=== PATIENT | female | born 1945 | race American Indian/Alaskan Native ===

== ENCOUNTER 2019-02-16 10:20 | Outpatient (CLI) | payer OTHER ==
--- NOTE | 2019-02-16 12:28 | Cat Scan Report ---
CT head without contrast HISTORY: MEMORY LOSS. TECHNIQUE: Axial imaging performed from the skull apex through the skull base without the use of con trast. All CT scans at this location are performed using CT dose reduction for ALARA by means of aut omated exposure control. COMPARISON: CT head from 07/20/2012 FINDINGS: Parenchyma: No acute intracranial hemorrhage or parenchymal abnormality. 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 Ventricles: There is mild diffuse brain atrophy with commensurate ventricular enlargement which is l ikely age appropriate. Soft tissues: Soft tissues including the orbits appear normal. Bones: No acute osseous abnormality. Sinuses: There is a tiny right-sided maxillary mucus retention cyst. Otherwise sinuses and mastoid a ir cells are clear. IMPRESSION: No acute abnormality. Signer Name: González Baker MD Signed: 02/16/2019 12:24 PM Workstation Name: [id number]
== END 2019-02-16 10:21 | disposition home or self-care (01) ==
LOC: CT 10:20
PROVIDERS: ATTEND Internal Medicine Nephrology
DX: Z01.89 Encounter for other specified special examinations (principal); G31.89 Other specified degenerative diseases of nervous system
CPT/HCPCS: 70450

== ENCOUNTER 2019-04-03 05:56 | Day surgery (SDC) | payer MEDICARE, OTHER ==
[~2019-04-03 05:56] MED LIST: ceFAZolin/Water 2 GM/20 ML 2 GM/20 ML SYRINGE IV NR
[2019-04-03] MEDS ORDERED: BACTERIOSTATIC SODIUM CHLORIDE 0.9% 30 ML VIAL INFILTRATI ONE (06:45)
--- NOTE | 2019-04-03 07:18 | Anesthesia Consultation ---
Anesthesia Consult and Med Hx Date of service: 04/03/19 - Airway Anesthetic Teeth Evaluation: Good ROM Head & Neck: Adequate Mental/Hyoid Distance: Adequate Mallampati Class: Class II Intubation Access Assessment: Good - Pulmonary Exam CTA: Yes - Cardiac Exam Cardiac Exam: RRR - Pre-Operative Health Status ASA Pre-Surgery Classification: ASA3 Proposed Anesthetic Plan: General - Pulmonary Hx Smoking: No Hx Asthma: No Hx Respiratory Symptoms: No SOB: No Hx Pneumonia: No Hx Sleep Apnea: Yes (DX SLEEP APNEA WITH CPAP USE) - Cardiovascular System Hx Hypertension: Yes (1989) Hx Coronary Artery Disease: No (Neg stress thallium 2007, neg stress test 05/2014) Hx Cardia Arrhythmia: Yes (RBBB) Hx Heart Murmur: No - Central Nervous System Hx Neuromuscular Disorder: No Hx Seizures: No CVA: No Hx Back Pain: No Hx Psychiatric Problems: Yes (Depression) - Gastrointestinal Hx Ulcer: No Hx Gastroesophageal Reflux Disease: No - Endocrine Hx Renal Disease: No Hx Insulin Dependent Diabetes: No Hx Non-Insulin Dependent Diabetes: No (h/o pre-diabetes; off metformin x 10 months) Hx Thyroid Disease: No - Hematic Hx Anemia: Yes (NOT RECENT) Hx Sickle Cell Disease: No - Other Systems Hx Alcohol Use: No Hx Substance Use: No Hx Cancer: No Hx Obesity: No
[2019-04-03] MEDS ORDERED: HYDROmorphone 1 MG/1 ML INJ IV PRN (07:19)
[2019-04-03] MEDS ORDERED: ONDANSETRON 4 MG/2 ML INJ IV PRN (07:19)
[2019-04-03] MEDS ORDERED: LIDOCAINE (2%) 20 MG/1 ML VIAL 20 ML MDV INFILTRATI ONE ×2 (07:20→08:24)
--- NOTE | 2019-04-03 07:20 | Anesthesia Day of Surgery ---
Anesthesia Day of Surgery - Day of Surgery Patient Examined: Yes Patient H&P Reviewed: Yes Patient is NPO: Yes
[2019-04-03 07:25] LABS: Basophils % (Auto) 0.7 % (0.0-1.8); Eosinophils % (Auto) 1.2 % (0.0-4.3); Hematocrit 37.8 % (30.3-42.9); Hemoglobin 12.7 gm/dl (10.1-14.3); Lymphocytes # (Auto) 1.4 K/mm3 (1.2-5.4); Mean Corpuscular HGB Conc 34 % (30-34); Mean Corpuscular Volume 93 fl (79-97); Monocytes # (Auto) 0.3 K/mm3 (0.0-0.8); Monocytes % (Auto) 10.8 % (0.0-7.3); Platelet Count 188 K/mm3 (140-440); Red Blood Count 4.08 M/mm3 (3.65-5.03); Red Cell Distribution Width 14.1 % (13.2-15.2)
[2019-04-03] MEDS ORDERED: SUCCINYLCHOLINE CHLORIDE 200 MG/10 ML INJ MDV ONE (07:26)
[2019-04-03] MEDS ORDERED: fentaNYL 100 MCG/2 ML INJ ONE (07:26)
[2019-04-03] MEDS ORDERED: LIDOCAINE MPF (2%) 20 MG/1 ML VIAL 5 ML ONE (07:26)
[2019-04-03] MEDS ORDERED: PROPOFOL 200 MG/20 ML VIAL IV ONE ×2 (07:27→07:53)
[2019-04-03 07:46] LABS: BUN/Creatinine Ratio 29; Blood Urea Nitrogen 23 mg/dL (7-17); Calcium 9.1 mg/dL (8.4-10.2); Hemolysis Index 28
[2019-04-03] MEDS ORDERED: MIDAZOLAM 2 MG/2 ML INJ IV NR (08:00)
[2019-04-03] MEDS ORDERED: LACTATED RINGERS 1,000 ML IV SCH (08:00)
[2019-04-03] MEDS ORDERED: WATER FOR IRRIG STERILE 1,500 ML BOTTLE IR ONE (08:25)
[2019-04-03] MEDS ORDERED: dexAMETHasone 20 MG/5 ML VIAL ONE (08:30)
[2019-04-03] MEDS ORDERED: ONDANSETRON 4 MG/2 ML INJ ONE ×2 (08:30)
--- NOTE | 2019-04-03 08:52 | Short Stay Summary ---
Short Stay Documentation Date of service: 04/03/19 - History Past Medical History: No medical history - Allergies and Medications Current Medications: Allergies Sulfa (Sulfonamide Antibiotics) Allergy (Intermediate, Verified 11/19/14 09:21) Rash lisinopril Adverse Reaction (Intermediate, Verified 11/19/14 09:22) Rash monosodium glutamate Adverse Reaction (Verified 05/31/13 21:15) Vomiting Home Medications Medication Instructions Recorded Confirmed Last Taken Type Cetirizine HCl [ZyrTEC 10mg cap] 10 mg PO DAILY PRN 06/01/13 04/03/19 04/02/19 09:00 History Multivitamin [Multi-Vitamin Daily] 1 tab PO DAILY 06/01/13 04/03/19 04/02/19 09:00 History Docusate Sodium [Colace CAP] 100 mg PO BID PRN 11/18/14 04/03/19 04/02/19 09:00 History Losartan [Cozaar] 50 mg PO QDAY 11/18/14 04/03/19 04/03/19 04:00 History Omeprazole [PriLOSEC] 40 mg PO QDAY 11/18/14 04/03/19 04/02/19 09:00 History FLUoxetine HCL [Fluoxetine HCl] 60 mg PO DAILY 03/20/19 04/03/19 04/03/19 04:00 History Propranolol LA [Inderal LA] 60 mg PO QDAY 03/20/19 04/03/19 04/03/19 04:00 History cloNIDine-TTS PATCH [Catapres-Tts 0.2 mg TD QWEEK 03/20/19 04/03/19 04/02/19 09:00 History 0.3mg Patch] traZODone [Desyrel] 25 mg PO QHS 03/20/19 04/03/19 04/02/19 20:00 History Active Medications Hydromorphone HCl (Dilaudid) 0.25 mg IV Q10MIN PRN PRN Reason: Pain, Moderate (4-6) Stop: 04/03/19 23:00 Cefazolin Sodium (Ancef/Sterile Water 2 Gm/20 Ml) 2 gm in 20 mls @ 80 mls/hr IV PREOP NR; Protocol Stop: 04/03/19 23:00 Lactated Ringer's (Lactated Ringers) 1,000 mls @ 100 mls/hr IV DIRECT BUNNY Midazolam HCl (Versed) 2 mg IV PREOP NR Stop: 04/03/19 23:59 Ondansetron HCl (Zofran) 4 mg IV ONCE PRN PRN Reason: Nausea And Vomiting Stop: 04/03/19 16:00 - Brief post op/procedure progress note Date of procedure: 04/03/19 Pre-op diagnosis: interstim mal fux Post-op diagnosis: same Procedure: replace generator (battery) Anesthesia: GETA Surgeon: ORTEGA CARRENO Condition: stable - Hospital course Hospital course: cipro & norco on chart - Disposition Condition at discharge: Stable Disposition: DC-01 TO HOME OR SELFCARE Short Stay Discharge Plan Follow up with: MAGGY JULIO MD [Primary Care Provider] - 7 Days
[2019-04-03 09:46] VITALS: BP 143/86
--- NOTE | 2019-04-03 15:25 | XRay Report ---
INTRAOPERATIVE FLUOROSCOPY: INDICATION / CLINICAL INFORMATION: MALFUNCTIONING INTERSTIM. TECHNIQUE: Intraoperative spot images were obtained during the procedure. FINDINGS: Intraoperative spot images show placement of an InterStim lead on the left. Fluoroscopy Time: 2 seconds. Fluoroscopy Images: 2. Signer Name: Tobin Qiu MD Signed: 04/03/2019 3:20 PM Workstation Name: [id number]
--- NOTE | 2019-04-03 15:26 | Post Anesthesia Evaluation ---
- Post Anesthesia Evaluation Patient Participated: Yes Airway Patent: Yes Stable Respiratory Function: Yes Nausea/Vomiting: No Temp > 96.8F: Yes Pain Manageable: Yes Adequeate Hydration: Yes Anesthesia Complications: No Block Receding Appropriately: Not Applicable Patient on Ventilator: No
--- NOTE | 2019-04-05 11:11 | Operative Report ---
PREOPERATIVE DIAGNOSIS: Malfunctioning InterStim. POSTOPERATIVE DIAGNOSES: Malfunctioning InterStim. PROCEDURE: Replace implantable pulse generator (IPG). SURGEON: Edd Arrieta MD ANESTHESIA: General. ESTIMATED BLOOD LOSS: Minimal. FLUIDS: Crystalloid. COMPLICATIONS: No complications. INDICATIONS: This elderly female has been under my care for several years for nonobstructive urinary incontinence. She was initially seen in 2014. Urodynamic testing was consistent with urge incontinence. She underwent permanent InterStim at that time. She had done well for several years, presented to the office recently with worsening symptoms. Evaluation of her battery in the office was nonfunctional. She presents now for replacement of IPG. DESCRIPTION OF PROCEDURE: The patient was taken to the operative suite, placed in a supine position. After adequate general anesthesia, she was then placed in a prone position. Lower back prepped and draped in a sterile fashion. C-arm fluoroscopy confirmed pulse generator and quadripolar lead to be in good position. Incision with the Bovie was made over the generator in the left buttock area. Sharp dissection was taken down to the battery. It was exposed. No signs of infection. The battery was removed without difficulty. On the table test stimulation of all four leads revealed adequate stimulation in leads 0 1 and 2. No stimulation in lead 3. A new battery was then placed without difficulty. Interrogation on the table revealed an adequate response. Copious irrigation was performed. Adequate hemostasis achieved. The battery was then placed in subcutaneous pouch, 2-0 Vicryl was used to close subcutaneous tissue, 3-0 Vicryl was used to close the skin. Dressing was placed. The patient tolerated the procedure well. She was extubated and taken to recovery room in stable condition. JOB# [id number] [facility]
== END 2019-04-03 05:57 | disposition home or self-care (01) ==
LOC: OR 05:56
PROVIDERS: ATTEND Urology
DX: T83.190A Other mechanical complication of urinary electronic stimulator device, initial encounter (principal); I10 Essential (primary) hypertension; M19.90 Unspecified osteoarthritis, unspecified site; G47.30 Sleep apnea, unspecified; G56.00 Carpal tunnel syndrome, unspecified upper limb; I42.9 Cardiomyopathy, unspecified; K21.9 Gastro-esophageal reflux disease without esophagitis; F32.9 Major depressive disorder, single episode, unspecified; Z98.890 Other specified postprocedural states; Z90.710 Acquired absence of both cervix and uterus; Z87.440 Personal history of urinary (tract) infections; Z88.2 Allergy status to sulfonamides; Z79.899 Other long term (current) drug therapy; Z88.8 Allergy status to other drugs, medicaments and biological substances; Y83.8 Other surgical procedures as the cause of abnormal reaction of the patient, or of later complication, without mention of misadventure at the time of the procedure; Y82.8 Other medical devices associated with adverse incidents
CPT/HCPCS: 36415; 64590; 73501; 80048; 82962; 85025; 88302; C1767; C1787; C1894; J0330; J0690; J1100; J2405; J2704; J3010; J7120

== ENCOUNTER 2019-11-26 10:13 | Outpatient (CLI) | payer OTHER ==
--- NOTE | 2019-11-26 12:48 | Magnetic Resonance Report ---
MRI BRAIN WITHOUT CONTRAST INDICATION / CLINICAL INFORMATION: G31.84Mild cognitive impairment, so stated. TECHNIQUE: Multiplanar, multisequence MR images of the brain were obtained. COMPARISON: None available. FINDINGS: BRAIN / INTRACRANIAL CONTENTS: No acute ischemia, acute hemorrhage, mass effect, midline shift, or hy drocephalus. No chronic infarct. (see below for quantitative analysis of white matter) QUALITATIVE ANALYSIS OF FOCAL AND/OR GENERALIZED BRAIN VOLUME/ATROPHY: Normal brain parenchymal volum e for age. No significant focal or generalized atrophy. QUANTITATIVE ANALYSIS: * DEEP CEREBRAL WHITE MATTER: Grade 2 Fazekas Scale* deep cerebral white matter hyperintensities. * RIGHT HIPPOCAMPAL ATROPHY (based upon visual grading system of Chemo et al): Grade 1 * LEFT HIPPOCAMPAL ATROPHY (based upon visual grading system of Chemo et al): Grade 1 CRANIOCERVICAL JUNCTION: No significant abnormality. VASCULAR FLOW-VOIDS: No significant abnormality. ORBITS: Previous bilateral lens replacement. SINUSES / MASTOIDS: No significant abnormality of visualized sinuses and mastoid air cells. ADDITIONAL FINDINGS: None. IMPRESSION: 1. No significant focal or generalized brain atrophy beyond what would be expected in a patient of th is age. 2. Moderate chronic small vessel ischemic change in the cerebral white matter. *: Prince F, Vale KYA, Nadine A et-al. MR signal abnormalities at 1.5 T in Alzheimer's dementia and normal aging. AJR Am J Roentgenol. 1987;149 (2): 351-6. : Chemo Lawson, Curtis DA, Nicole E et-al. Medial temporal lobe atrophy on MRI scans and the diagno sis of Alzheimer disease. Neurology. 2008;71 (24): 1986-92. Signer Name: Tomás House MD Signed: 11/26/2019 12:43 PM Workstation Name: [id number]
== END 2019-11-26 10:14 | disposition home or self-care (01) ==
LOC: MRI 10:13
DX: G31.84 Mild cognitive impairment of uncertain or unknown etiology (principal)
CPT/HCPCS: 70551

== ENCOUNTER 2021-02-22 02:35 | Emergency (ER) | payer MEDICARE, OTHER ==
[2021-02-22] MEDS ORDERED: HYDROcodone/ACETAMINOPHEN 5-325 MG TAB PO ONE (05:10)
--- NOTE | 2021-02-22 06:00 | XRay Report ---
Right ankle, 3 views HISTORY: Ankle pain COMPARISON: None FINDINGS: There is an acute oblique fracture involving the distal fibula at the syndesmosis. Syndesmo sis and ankle mortise are intact. No additional fracture. Lateral ankle soft tissue swelling. IMPRESSION: Acute oblique fracture of the right distal fibula. Left ankle, 3 views HISTORY: Ankle pain COMPARISON: None FINDINGS: Small ossific fragment is present at the dorsal aspect of the navicular, suspect acute frac ture. No additional fracture. Ankle mortise is symmetric. Mild soft tissue swelling about the ankle, greatest laterally. IMPRESSION: Suspected acute fracture of the dorsal aspect of the left navicular. No additional acute osseous abnormality. Signer Name: Philip Bourgeois MD Signed: 02/22/2021 5:55 AM Workstation Name: [id number]
[2021-02-22] MEDS ORDERED: ONDANSETRON 4 MG ODT TAB PO ONE (06:26)
[2021-02-22] MEDS ORDERED: IBUPROFEN 200 MG TAB PO ONE (06:26)
--- NOTE | 2021-02-22 06:27 | Emergency Department Report ---
ED Lower Extremity HPI - General Chief Complaint: Extremity Injury, Lower Stated Complaint: FALL ANKLE INJURY Time Seen by Provider: 02/22/21 06:01 Source: patient, RN notes reviewed Mode of arrival: Stretcher Limitations: Physical Limitation - History of Present Illness Initial Comments: During the history and physical examination, I am chaperoned by life skills trainer Thalia Liu Primary CARE physician: [facility] Past medical history: Hypertension, arthritis. The patient is a pleasant 76-year-old female. She presents to the ER today with a complaint of right lateral ankle pain, and left dorsal foot pain, after mechanical fall approximately 12 hours ago. Patient was walking downstairs, slipped, twisted her right ankle, left foot, and landed on her butt. She did not hit her head or neck. She has no new headache, denies neck pain, chest pain, abdominal pain, shortness of breath, nausea, vomiting and diarrhea, weakness and numbness. She denies bladder, bowel retention incontinence or saddle anesthesia. She is accompanied by her daughter. The patient reports that she has 2 sets of stairs at home. The patient lives at home by herself. MD Complaint: ankle injury, foot injury, other (Right ankle pain. Left foot injury) -: Sudden, hour(s) (12 hours ago) Injury: Ankle: Right, Foot: Left Type of Injury: blunt Place: home Severity: moderate Improves With: rest Worsens With: movement, palpation Context: fall, direct blow Associated Symptoms: swelling, unable to bear weight - Related Data Home Medications Medication Instructions Recorded Confirmed Last Taken Cetirizine HCl [ZyrTEC 10mg cap] 10 mg PO DAILY PRN 06/01/13 04/03/19 04/02/19 09:00 Multivitamin [Multi-Vitamin Daily] 1 tab PO DAILY 06/01/13 04/03/19 04/02/19 09:00 Docusate Sodium [Colace CAP] 100 mg PO BID PRN 11/18/14 04/03/19 04/02/19 09:00 Losartan [Cozaar] 50 mg PO QDAY 11/18/14 04/03/19 04/03/19 04:00 Omeprazole [PriLOSEC] 40 mg PO QDAY 11/18/14 04/03/19 04/02/19 09:00 FLUoxetine HCL [Fluoxetine HCl] 60 mg PO DAILY 03/20/19 04/03/19 04/03/19 04:00 Propranolol LA [Inderal LA] 60 mg PO QDAY 03/20/19 04/03/19 04/03/19 04:00 cloNIDine-TTS PATCH [Catapres-Tts 0.2 mg TD QWEEK 03/20/19 04/03/19 04/02/19 09:00 0.3mg Patch] traZODone [Desyrel] 25 mg PO QHS 03/20/19 04/03/19 04/02/19 20:00 Previous Rx's Medication Instructions Recorded Last Taken Type Acetaminophen [Non-Aspirin Extra 650 mg PO Q6HR PRN #30 tablet 02/22/21 Unknown Rx Strength] Ibuprofen [Motrin] 400 mg PO Q8H PRN #30 tablet 02/22/21 Unknown Rx Allergies Allergy/AdvReac Type Severity Reaction Status Date / Time Sulfa (Sulfonamide Allergy Intermediate Rash Verified 11/19/14 09:21 Antibiotics) lisinopril AdvReac Intermediate Rash Verified 11/19/14 09:22 monosodium glutamate AdvReac Vomiting Verified 05/31/13 21:15 ED Review of Systems ROS: Stated complaint: FALL ANKLE INJURY Other details as noted in HPI Constitutional: denies: fever Eyes: denies: eye discharge ENT: denies: epistaxis Respiratory: denies: cough Cardiovascular: denies: chest pain Musculoskeletal: joint swelling, arthralgia. denies: myalgia Neurological: denies: weakness, numbness ED Past Medical Hx - Past Medical History Previous Medical History?: Yes Hx Hypertension: Yes (1989) Hx Diabetes: Yes ("PRE"- NO MEDS) Hx GERD: Yes Hx Renal Disease: No Hx Sickle Cell Disease: No Hx Arthritis: Yes (KNEES) Hx Seizures: No Hx Asthma: No Hx HIV: No Additional medical history: sleep apnea - Surgical History Past Surgical History?: Yes Additional Surgical History: rotator cuff and knee surg. - Social History Smoking Status: Never Smoker - Medications Home Medications: Home Medications Medication Instructions Recorded Confirmed Last Taken Type Cetirizine HCl [ZyrTEC 10mg cap] 10 mg PO DAILY PRN 06/01/13 04/03/19 04/02/19 09:00 History Multivitamin [Multi-Vitamin Daily] 1 tab PO DAILY 06/01/13 04/03/19 04/02/19 09:00 History Docusate Sodium [Colace CAP] 100 mg PO BID PRN 11/18/14 04/03/19 04/02/19 09:00 History Losartan [Cozaar] 50 mg PO QDAY 11/18/14 04/03/19 04/03/19 04:00 History Omeprazole [PriLOSEC] 40 mg PO QDAY 11/18/14 04/03/19 04/02/19 09:00 History FLUoxetine HCL [Fluoxetine HCl] 60 mg PO DAILY 03/20/19 04/03/19 04/03/19 04:00 History Propranolol LA [Inderal LA] 60 mg PO QDAY 03/20/19 04/03/19 04/03/19 04:00 History cloNIDine-TTS PATCH [Catapres-Tts 0.2 mg TD QWEEK 03/20/19 04/03/19 04/02/19 09:00 History 0.3mg Patch] traZODone [Desyrel] 25 mg PO QHS 03/20/19 04/03/19 04/02/19 20:00 History Acetaminophen [Non-Aspirin Extra 650 mg PO Q6HR PRN #30 tablet 02/22/21 Unknown Rx Strength] Ibuprofen [Motrin] 400 mg PO Q8H PRN #30 tablet 02/22/21 Unknown Rx ED Physical Exam - General Limitations: Physical Limitation General appearance: alert, in no apparent distress, obese - Head Head exam: Present: atraumatic, normocephalic - Eye Eye exam: Present: normal appearance, EOMI. Absent: nystagmus - ENT ENT exam: Present: normal exam, normal orophraynx, mucous membranes moist, normal external ear exam - Neck Neck exam: Present: normal inspection, full ROM. Absent: tenderness, meningismus - Respiratory Respiratory exam: Present: normal lung sounds bilaterally. Absent: respiratory distress, wheezes, rales, rhonchi, stridor, decreased breath sounds - Cardiovascular Cardiovascular Exam: Present: regular rate, normal rhythm, normal heart sounds. Absent: bradycardia, tachycardia, irregular rhythm, systolic murmur, diastolic murmur, rubs, gallop - GI/Abdominal GI/Abdominal exam: Present: soft. Absent: distended, tenderness, guarding, rebound, rigid, pulsatile mass - Extremities Exam Extremities exam: Present: normal inspection, full ROM, tenderness (There is right lateral ankle tenderness. There is no right medial ankle tenderness. The right knee is nontender. The right hip, femur, thigh pelvis nontender), joint swelling (The right lateral ankle swollen.), other (Left dorsal foot is tender. Left ankle nontender. Left knee nontender. Left pelvis nontender. Coccyx nontender.). Absent: calf tenderness - Back Exam Back exam: Present: normal inspection, full ROM. Absent: tenderness, CVA tenderness (R), CVA tenderness (L), paraspinal tenderness, vertebral tenderness - Neurological Exam Neurological exam: Present: alert, oriented X3, other (No facial droop. Tongue midline. Extraocular movements intact bilaterally. Facial sensation intact to light touch in V1, V2, V3 distribution bilaterally. 5 and a 5 strength in 4 extremities. Sensation intact to light touch in 4 extremities.). Absent: motor sensory deficit - Psychiatric Psychiatric exam: Present: normal affect, normal mood - Skin Skin exam: Present: warm, dry, intact, normal color. Absent: rash - Other Other exam information: 2+ pulses noted in the bilateral upper and lower extremities. The upper extremities have no longer any tenderness. The pelvis is stable. The coccyx is nontender. Femur nontender. Bilateral knees nontender. ED Course Vital Signs 02/22/21 02/22/21 02/22/21 06:09 06:37 06:42 Temperature 98.2 F Pulse Rate 84 Respiratory 20 20 20 Rate Blood Pressure 180/93 [Left] O2 Sat by Pulse 99 Oximetry 02/22/21 08:40 Temperature Pulse Rate 81 Respiratory 16 Rate Blood Pressure 173/84 [Left] O2 Sat by Pulse 98 Oximetry - Reevaluation(s) Reevaluation #1: 02/22/21 07:38 Differential diagnosis, including not limited to: Fall, fracture, sprain, strain, dislocation Assessment and plan: 76-year-old female, who was afebrile, with reassuring vital signs with the exception of chronic elevated blood pressure which is not acutely decompensated (please reference the [employer] emergency visits clinical policy on asymptomatic hypertension), with mechanical fall, with right distal fibular fracture, and left navicular avulsion fracture. Pelvis nontender. Coccyx nontender. Knees nontender. She has a GCS of 15. Because of these injuries, she will need to be nonweightbearing. Splint ordered for bilateral lower extremities. Pain medication ordered. As the patient will require a wheelchair, and lives at home by herself, and has 2 steps of stairs, have requested physical therapy evaluation, as well as case management evaluation. I discussed this with the patient, and with her daughter who are currently at the bedside. We treated her pain aggressively. She can follow-up with her outpatient primary care doctor for chronic hypertension. She will need to follow-up with an outpatient orthopedist or lot boss for her orthopedic injuries. However, these injuries do not require admission to the hospital for emergent surgical fixation. Bilateral knees nontender, Maisonneuve fracture very unlikely. Hip and pelvis nontender. Coccyx nontender. Patient did not hit her head or neck. She also tells me she does not take blood thinning medication Reassess after evaluation from case management, and physical therapy 02/22/21 10:07 Patient reassessed multiple times. She appears comfortable. Splint is examined by myself. It is adequate. She is neurovascular intact distally. Daughter has indicated to case management that she will take off of work if necessary. Home PT evaluation has been ordered by case management. In addition, case management informs me that a wheelchair should be delivered to the patient's house this afternoon. I discussed this with the patient and her daughter. They articulated understanding. Patient suitable for discharge at this point time. All questions answered. Return precautions are reviewed ED Lower Extremity MDM - Lab Data Vital Signs 02/22/21 02/22/21 02/22/21 06:09 06:37 06:42 Temperature 98.2 F Pulse Rate 84 Respiratory 20 20 20 Rate Blood Pressure 180/93 [Left] O2 Sat by Pulse 99 Oximetry - Radiology Data Radiology results: report reviewed, image reviewed Right ankle, 3 views HISTORY: Ankle pain COMPARISON: None FINDINGS: There is an acute oblique fracture involving the distal fibula at the syndesmosis. Syndesmosis and ankle mortise are intact. No additional fracture. Lateral ankle soft tissue swelling. IMPRESSION: Acute oblique fracture of the right distal fibula. Left ankle, 3 views HISTORY: Ankle pain COMPARISON: None FINDINGS: Small ossific fragment is present at the dorsal aspect of the navicular, suspect acute fracture. No additional fracture. Ankle mortise is symmetric. Mild soft tissue swelling about the ankle, greatest laterally. IMPRESSION: Suspected acute fracture of the dorsal aspect of the left navicular. No additional acute osseous abnormality. Signer Name: Philip Bourgeois MD Signed: 02/22/2021 4:55 AM Workstation Name: [id number] Critical care attestation.: If time is entered above; I have spent that time in minutes in the direct care of this critically ill patient, excluding procedure time. ED Disposition Clinical Impression: Elevated blood pressure reading Closed fracture of right distal fibula Qualifiers: Encounter type: initial encounter Fracture morphology: unspecified fracture morphology Qualified Code(s): S82.831A - Other fracture of upper and lower end of right fibula, initial encounter for closed fracture Left navicular fracture of foot Qualifiers: Encounter type: initial encounter Fracture type: closed Fracture alignment: nondisplaced Qualified Code(s): S92.255A - Nondisplaced fracture of navicular [scaphoid] of left foot, initial encounter for closed fracture Fall Qualifiers: Encounter type: initial encounter Qualified Code(s): W19.XXXA - Unspecified fall, initial encounter Disposition: 01 HOME / SELF CARE / HOMELESS Is pt being admited?: No Does the pt Need Aspirin: No Condition: Good Instructions: Nondisplaced Fibular Ankle Fracture Treated With Immobilization, Adult, Tarsal Fracture, Cast or Splint Care, Adult Additional Instructions: Pain typically gets worse before gets better after a fall. Remain non weightbearing in the bilateral lower extremities, use the wheelchair. Take the pain medication as prescribed. Continue current outpatient blood pressure medication. Recommend follow-up with an outpatient orthopedist or lot boss for left navicular fracture, and right distal fibular fracture, within the next 3 to 5 days. [facility] is a local orthopedic group. Dr. Fam is a local lot boss. Dr. Rodriguez is a local orthopedist. Alternate ice packs and heat packs as needed for physical pain. Please return to the emergency room right away with new pain, worsened pain, migration of pain, weakness, numbness, projectile vomiting, change in mental status, confusion, inability to tolerate liquid feeds, new, worsened or different symptoms not present on the initial emergency room evaluation Prescriptions: Ibuprofen [Motrin] 400 mg PO Q8H PRN #30 tablet PRN Reason: Pain Acetaminophen [Non-Aspirin Extra Strength] 650 mg PO Q6HR PRN #30 tablet PRN Reason: Pain , Severe (7-10) Referrals: [facility] [Provider Group] - 3-5 Days PATRICK FAM DPM [Staff Physician] - 3-5 Days DULCE RODRIGUEZ MD [Staff Physician] - 3-5 Days
[2021-02-22] MEDS ORDERED: IBUPROFEN ORAL LIQD 100 MG/5 ML ORAL.LIQD PO ONE (06:37)
[2021-02-22 10:50] VITALS: BP 160/78
== END 2021-02-22 10:51 | disposition home or self-care (01) ==
LOC: ED 02:35
DX: S82.831A Other fracture of upper and lower end of right fibula, initial encounter for closed fracture (principal); S92.255A Nondisplaced fracture of navicular [scaphoid] of left foot, initial encounter for closed fracture; I10 Essential (primary) hypertension; E11.9 Type 2 diabetes mellitus without complications; K21.9 Gastro-esophageal reflux disease without esophagitis; M19.90 Unspecified osteoarthritis, unspecified site; Z79.899 Other long term (current) drug therapy; Z88.2 Allergy status to sulfonamides; Z88.8 Allergy status to other drugs, medicaments and biological substances; W18.39XA Other fall on same level, initial encounter; Y93.89 Activity, other specified; Y92.89 Other specified places as the place of occurrence of the external cause; Y99.8 Other external cause status
CPT/HCPCS: 99283; J3490; Q0162

== ENCOUNTER 2021-03-13 20:06 | Emergency (ER) | payer MEDICARE, OTHER ==
[2021-03-13] MEDS ORDERED: ASPIRIN 81 MG TAB CHEW PO ONE (20:25)
--- NOTE | 2021-03-13 20:30 | Emergency Department Report ---
ED Chest Pain HPI - General Chief Complaint: High BP Stated Complaint: LEFT ARM PAIN/ HYPERTENSION Time Seen by Provider: 03/13/21 20:17 Source: EMS Mode of arrival: Stretcher Limitations: No Limitations - History of Present Illness Initial Comments: Chief complaint: Arm pain elevated blood pressure HPI: 76-year-old female with history of hypertension, osteoarthritis, sleep apnea, carpal tunnel syndrome, bilateral ankle fractures who presents with left arm pain rating to the chest for several days. Patient has had left upper extremity pain rating to her chest with shortness of breath. Intermittent. She has been mostly immobile since being diagnosed with bilateral ankle fractures February 22. No previous history of cardiac disease. She has history of heart murmur. She has clonidine patch in place. No changes in her medication. She is unclear why her blood pressure has been extremely high. She is retired . She served in the [employer]. She lives alone. Her daughter lives nearby only 1 mile away. MD Complaint: chest pain, other (Left arm pain radiating to the chest and shoulder) -: Gradual Onset: during rest Pain Location: left chest Pain Radiation: LUE Severity: moderate Severity scale (0 -10): 5 Quality: aching, dull Consistency: intermittent Improves With: other (Deep breathing) Worsens With: nothing Context: recent immobilization Treatments Prior to Arrival: other (EMS transport) - Related Data Home Medications Medication Instructions Recorded Confirmed Last Taken Cetirizine HCl [ZyrTEC 10mg cap] 10 mg PO DAILY PRN 06/01/13 04/03/19 04/02/19 09:00 Multivitamin [Multi-Vitamin Daily] 1 tab PO DAILY 06/01/13 04/03/19 04/02/19 09:00 Docusate Sodium [Colace CAP] 100 mg PO BID PRN 11/18/14 04/03/19 04/02/19 09:00 Losartan [Cozaar] 50 mg PO QDAY 11/18/14 04/03/19 04/03/19 04:00 Omeprazole [PriLOSEC] 40 mg PO QDAY 11/18/14 04/03/19 04/02/19 09:00 FLUoxetine HCL [Fluoxetine HCl] 60 mg PO DAILY 03/20/19 04/03/19 04/03/19 04:00 Propranolol LA [Inderal LA] 60 mg PO QDAY 03/20/19 04/03/19 04/03/19 04:00 cloNIDine-TTS PATCH [Catapres-Tts 0.2 mg TD QWEEK 03/20/19 04/03/19 04/02/19 09:00 0.3mg Patch] traZODone [Desyrel] 25 mg PO QHS 03/20/19 04/03/19 04/02/19 20:00 Previous Rx's Medication Instructions Recorded Last Taken Type Acetaminophen [Non-Aspirin Extra 650 mg PO Q6HR PRN #30 tablet 02/22/21 Unknown Rx Strength] Ibuprofen [Motrin] 400 mg PO Q8H PRN #30 tablet 02/22/21 Unknown Rx Allergies Allergy/AdvReac Type Severity Reaction Status Date / Time Sulfa (Sulfonamide Allergy Intermediate Rash Verified 03/13/21 20:13 Antibiotics) lisinopril AdvReac Intermediate Rash Verified 03/13/21 20:13 monosodium glutamate AdvReac Vomiting Verified 03/13/21 20:13 Heart Score - HEART Score History: Moderately suspicious EKG: Non-specific Age: > 65 Risk factors: 1-2 risk factors Troponin: < normal limit HEART Score: 5 - EKG Read Time Time EKG Completed: 20:46 EKG Read Time: 20:46 - Critical Actions Critical Actions: 4-6 pts:12-16.6% risk of adverse cardiac event. Should be admitted ED Review of Systems ROS: Stated complaint: LEFT ARM PAIN/ HYPERTENSION Other details as noted in HPI Comment: All other systems reviewed and negative Constitutional: denies: chills, fever, malaise Respiratory: shortness of breath. denies: cough Cardiovascular: chest pain Gastrointestinal: denies: abdominal pain, nausea, vomiting ED Past Medical Hx - Past Medical History Previous Medical History?: Yes Hx Hypertension: Yes (1989) Hx Diabetes: Yes ("PRE"- NO MEDS) Hx GERD: Yes Hx Renal Disease: No Hx Sickle Cell Disease: No Hx Arthritis: Yes (KNEES) Hx Seizures: No Hx Asthma: No Hx HIV: No Additional medical history: sleep apnea - Surgical History Past Surgical History?: Yes Additional Surgical History: rotator cuff and knee surg. - Family History Family history: hypertension - Social History Smoking Status: Never Smoker Substance Use Type: None - Medications Home Medications: Home Medications Medication Instructions Recorded Confirmed Last Taken Type Cetirizine HCl [ZyrTEC 10mg cap] 10 mg PO DAILY PRN 06/01/13 04/03/19 04/02/19 09:00 History Multivitamin [Multi-Vitamin Daily] 1 tab PO DAILY 06/01/13 04/03/19 04/02/19 09:00 History Docusate Sodium [Colace CAP] 100 mg PO BID PRN 11/18/14 04/03/19 04/02/19 09:00 History Losartan [Cozaar] 50 mg PO QDAY 11/18/14 04/03/19 04/03/19 04:00 History Omeprazole [PriLOSEC] 40 mg PO QDAY 11/18/14 04/03/19 04/02/19 09:00 History FLUoxetine HCL [Fluoxetine HCl] 60 mg PO DAILY 03/20/19 04/03/19 04/03/19 04:00 History Propranolol LA [Inderal LA] 60 mg PO QDAY 03/20/19 04/03/19 04/03/19 04:00 History cloNIDine-TTS PATCH [Catapres-Tts 0.2 mg TD QWEEK 03/20/19 04/03/19 04/02/19 09:00 History 0.3mg Patch] traZODone [Desyrel] 25 mg PO QHS 03/20/19 04/03/19 04/02/19 20:00 History Acetaminophen [Non-Aspirin Extra 650 mg PO Q6HR PRN #30 tablet 02/22/21 Unknown Rx Strength] Ibuprofen [Motrin] 400 mg PO Q8H PRN #30 tablet 02/22/21 Unknown Rx ED Physical Exam - General Limitations: No Limitations General appearance: alert, in no apparent distress - Head Head exam: Present: atraumatic, normocephalic - Eye Eye exam: Present: normal appearance - ENT ENT exam: Present: mucous membranes moist - Neck Neck exam: Present: normal inspection, full ROM - Respiratory Respiratory exam: Present: normal lung sounds bilaterally. Absent: respiratory distress, wheezes, rales, rhonchi - Cardiovascular Cardiovascular Exam: Present: regular rate, normal rhythm, normal heart sounds. Absent: systolic murmur, diastolic murmur, rubs, gallop - GI/Abdominal GI/Abdominal exam: Present: soft, normal bowel sounds. Absent: distended, tenderness, guarding, rebound - Extremities Exam Extremities exam: Present: normal inspection - Expanded Upper Extremity Exam Left Shoulder Exam: Present: normal inspection, full ROM Upper Arm exam: Present: normal inspection, full ROM Elbow exam: Present: normal inspection, full ROM Forearm Wrist exam: Present: normal inspection, full ROM Hand Wrist exam: Present: normal inspection, full ROM - Neurological Exam Neurological exam: Present: alert, oriented X3 - Psychiatric Psychiatric exam: Present: normal affect, normal mood - Skin Skin exam: Present: warm, dry, intact, normal color. Absent: rash ED Course Vital Signs 03/13/21 03/13/21 03/13/21 20:13 20:27 20:36 Temperature 98.8 F Pulse Rate 66 71 Respiratory 16 Rate Blood Pressure 236/129 Blood Pressure 227/120 [Left] O2 Sat by Pulse 97 99 Oximetry 03/13/21 03/13/21 03/13/21 20:45 21:01 21:15 Temperature Pulse Rate 67 64 67 Respiratory 14 19 12 Rate Blood Pressure 214/136 211/105 210/112 Blood Pressure [Left] O2 Sat by Pulse 98 99 98 Oximetry 03/13/21 21:31 Temperature Pulse Rate 85 Respiratory 13 Rate Blood Pressure 173/94 Blood Pressure [Left] O2 Sat by Pulse 98 Oximetry - Reevaluation(s) Reevaluation #1: 03/13/21 21:46 Repeat blood pressure 161/85 patient has shortness of breath and nausea. Oxygen did help relieve symptoms. I have ordered Zofran. Admitted to telemetry ED Medical Decision Making - Lab Data Result diagrams: 03/13/21 20:28 03/13/21 20:28 - EKG Data -: EKG Interpreted by De EKG shows normal: sinus rhythm Rate: normal - EKG Data 03/13/21 21:20 EKG obtained 2045 EKG interpreted by nh Rate 70 bpm normal axis right bundle branch block normal QTC no ST elevation nonspecific T wave pattern - Medical Decision Making 1. Acute coronary syndrome: Heart score 5, first troponin negative. Admitted to the hospital service for cardiac evaluation. Aspirin given emergency depar tment 2. Hypertensive emergency: Multiple doses of IV antihypertensive medications given emergency department including IV labetalol and IV hydralazine. Patient has new clonidine patch on left shoulder. Critical care attestation.: If time is entered above; I have spent that time in minutes in the direct care of this critically ill patient, excluding procedure time. ED Disposition Clinical Impression: Acute coronary syndrome, Hypertensive emergency Disposition: 09 ADMITTED INPATIENT Is pt being admited?: Yes Does the pt Need Aspirin: No Condition: Stable Instructions: Hypertension (ED)
[2021-03-13 20:51] LABS: Basophils % (Auto) 0.9 % (0.0-1.8); Eosinophils # (Auto) 0.1 K/mm3 (0.0-0.4); Hematocrit 40.6 % (30.3-42.9); Hemoglobin 13.2 gm/dl (10.1-14.3); Lymphocytes # (Auto) 1.6 K/mm3 (1.2-5.4); Lymphocytes % (Auto) 38.6 % (13.4-35.0); Mean Corpuscular HGB Conc 32 % (30-34); Mean Corpuscular Volume 92 fl (79-97); Monocytes # (Auto) 0.4 K/mm3 (0.0-0.8); Platelet Count 215 K/mm3 (140-440); Red Blood Count 4.43 M/mm3 (3.65-5.03); Red Cell Distribution Width 14.8 % (13.2-15.2)
--- NOTE | 2021-03-13 21:00 | XRay Report ---
CHEST 1 VIEW 03/13/2021 8:43 PM INDICATION / CLINICAL INFORMATION: Chest Pain left arm pain. COMPARISON: 07/19/2012 FINDINGS: SUPPORT DEVICES: None. HEART / MEDIASTINUM: No significant abnormality. LUNGS / PLEURA: No significant pulmonary or pleural abnormality. No pneumothorax. ADDITIONAL FINDINGS: No significant additional findings. IMPRESSION: 1. No acute findings. Signer Name: Fernando Munoz MD Signed: 03/13/2021 8:55 PM Workstation Name: [id number]
[2021-03-13 21:11] LABS: Alanine Aminotransferase 18 units/L (7-56); Albumin 4.4 g/dL (3.9-5); Blood Urea Nitrogen 21 mg/dL (7-17); Calcium 9.2 mg/dL (8.4-10.2); Hemolysis Index 4
[2021-03-13] MEDS ORDERED: hydrALAZINE 20 MG/1 ML INJ IV ONE (21:13)
[2021-03-13 21:19] LABS: BUN/Creatinine Ratio 35
[2021-03-13] MEDS ORDERED: ACETAMINOPHEN 325 MG TAB PO PRN (21:26)
[2021-03-13] MEDS ORDERED: MORPHINE 4 MG/1 ML INJ IV PRN (21:26)
[2021-03-13] MEDS ORDERED: traMADol 50 MG TAB PO PRN (21:26)
[2021-03-13] MEDS ORDERED: NITROGLYCERIN 0.4 MG TAB SUBL SL PRN (21:26)
[2021-03-13] MEDS ORDERED: hydrALAZINE 20 MG/1 ML INJ IV PRN (21:29)
[2021-03-13] MEDS ORDERED: IBUPROFEN 600 MG TAB PO PRN (21:30)
[2021-03-13] MEDS ORDERED: DOCUSATE SODIUM 100 MG CAP PO PRN (21:30)
--- NOTE | 2021-03-13 21:36 | History and Physical Report ---
History of Present Illness Date of examination: 03/13/21 Date of admission: 03/13/21 Chief complaint: Chest pain History of present illness: 76-year-old female with history of hypertension, osteoarthritis, sleep apnea, carpal tunnel syndrome, bilateral ankle fractures who presents with left arm pain rating to the chest for several days. Patient has had left upper extremity pain rating to her chest with shortness of breath. Intermittent. She has been mostly immobile since being diagnosed with bilateral ankle fractures February 22. No previous history of cardiac disease. She has history of heart murmur. She has clonidine patch in place. No changes in her medication. She is unclear why her blood pressure has been extremely high. In the emergency room patient is found to have blood pressure of 227/120, initial cardiac enzyme is negative troponin is 0.010. So going to admit the patient to put the patient on chest pain pathway will consult cardiology for evaluation Med rec is done Past History Past Medical History: arthritis, diabetes, GERD, hypertension Medications and Allergies Allergies Allergy/AdvReac Type Severity Reaction Status Date / Time Sulfa (Sulfonamide Allergy Intermediate Rash Verified 03/13/21 20:13 Antibiotics) lisinopril AdvReac Intermediate Rash Verified 03/13/21 20:13 monosodium glutamate AdvReac Vomiting Verified 03/13/21 20:13 Home Medications Medication Instructions Recorded Confirmed Last Taken Type Cetirizine HCl [ZyrTEC 10mg cap] 10 mg PO DAILY PRN 06/01/13 04/03/19 04/02/19 09:00 History Multivitamin [Multi-Vitamin Daily] 1 tab PO DAILY 06/01/13 04/03/19 04/02/19 09:00 History Docusate Sodium [Colace CAP] 100 mg PO BID PRN 11/18/14 04/03/19 04/02/19 09:00 History Losartan [Cozaar] 50 mg PO QDAY 11/18/14 04/03/19 04/03/19 04:00 History Omeprazole [PriLOSEC] 40 mg PO QDAY 11/18/14 04/03/19 04/02/19 09:00 History FLUoxetine HCL [Fluoxetine HCl] 60 mg PO DAILY 03/20/19 04/03/19 04/03/19 04:00 History Propranolol LA [Inderal LA] 60 mg PO QDAY 03/20/19 04/03/19 04/03/19 04:00 History cloNIDine-TTS PATCH [Catapres-Tts 0.2 mg TD QWEEK 03/20/19 04/03/19 04/02/19 09:00 History 0.3mg Patch] traZODone [Desyrel] 25 mg PO QHS 03/20/19 04/03/19 04/02/19 20:00 History Acetaminophen [Non-Aspirin Extra 650 mg PO Q6HR PRN #30 tablet 02/22/21 Unknown Rx Strength] Ibuprofen [Motrin] 400 mg PO Q8H PRN #30 tablet 02/22/21 Unknown Rx Review of Systems All systems: negative Constitutional: other (Left arm pain) Cardiovascular: chest pain, shortness of breath Respiratory: shortness of breath Exam - Constitutional Vitals: Temp Pulse Resp BP Pulse Ox 98.8 F 64 19 211/105 99 03/13/21 20:13 03/13/21 21:01 03/13/21 21:01 03/13/21 21:01 03/13/21 21:01 General appearance: Present: no acute distress, well-nourished - EENT Eyes: Present: PERRL ENT: hearing intact, clear oral mucosa - Neck Neck: Present: supple, normal ROM - Respiratory Respiratory effort: normal Respiratory: bilateral: CTA - Cardiovascular Heart Sounds: Present: S1 & S2. Absent: rub, click - Extremities Extremities: pulses symmetrical, No edema Peripheral Pulses: within normal limits - Abdominal General gastrointestinal: Present: soft, non-tender, non-distended, normal bowel sounds Female genitourinary: Present: normal - Integumentary Integumentary: Present: clear, warm, dry - Musculoskeletal Musculoskeletal: gait normal, strength equal bilaterally - Psychiatric Psychiatric: appropriate mood/affect, intact judgment & insight - Neurologic Neurologic: CNII-XII intact, moves all extremities HEART Score - HEART Score EKG: Non-specific Age: > 65 Risk factors: 1-2 risk factors Troponin: Troponin T < 0.010 ng/mL (0.00-0.029) 03/13/21 20:28 Troponin: < normal limit - Critical Actions Critical Actions: 4-6 pts:12-16.6% risk of adverse cardiac event. Should be admitted Results - Labs CBC & Chem 7: 03/13/21 20:28 03/13/21 20:28 Labs: Laboratory Last Values WBC 4.0 K/mm3 (4.5-11.0) L 03/13/21 20: RBC 4.43 M/mm3 (3.65-5.03) 03/13/21 20: Hgb 13.2 gm/dl (10.1-14.3) 03/13/21 20: Hct 40.6 % (30.3-42.9) 03/13/21 20: MCV 92 fl (79-97) 03/13/21 20: MCH 30 pg (28-32) 03/13/21 20: MCHC 32 % (30-34) 03/13/21 20: RDW 14.8 % (13.2-15.2) 03/13/21 20: Plt Count 215 K/mm3 (140-440) 03/13/21 20: Lymph % (Auto) 38.6 % (13.4-35.0) H 03/13/21 20: [place] % (Auto) 10.0 % (0.0-7.3) H 03/13/21 20: Eos % (Auto) 2.0 % (0.0-4.3) 03/13/21 20: Baso % (Auto) 0.9 % (0.0-1.8) 03/13/21 20: Lymph # (Auto) 1.6 K/mm3 (1.2-5.4) 03/13/21 20: [place] # (Auto) 0.4 K/mm3 (0.0-0.8) 03/13/21 20: Eos # (Auto) 0.1 K/mm3 (0.0-0.4) 03/13/21 20: Baso # (Auto) 0.0 K/mm3 (0.0-0.1) 03/13/21 20: Seg Neutrophils % 48.5 % (40.0-70.0) 03/13/21 20: Seg Neutrophils # 2.0 K/mm3 (1.8-7.7) 03/13/21 20: Sodium 141 mmol/L (137-145) 03/13/21 20: Potassium 3.7 mmol/L (3.6-5.0) 03/13/21 20:28 Chloride 101.9 mmol/L (98-107) 03/13/21 20:28 Carbon Dioxide 27 mmol/L (22-30) 03/13/21 20:28 Anion Gap 16 mmol/L 03/13/21 20:28 BUN 21 mg/dL (7-17) H 03/13/21 20:28 Creatinine 0.6 mg/dL (0.6-1.2) 03/13/21 20:28 Estimated GFR > 60 ml/min 03/13/21 20:28 BUN/Creatinine Ratio 35 % 03/13/21 20:28 Glucose 124 mg/dL (65-100) H 03/13/21 20:28 Calcium 9.2 mg/dL (8.4-10.2) 03/13/21 20:28 Total Bilirubin 0.30 mg/dL (0.1-1.2) 03/13/21 20:28 AST 19 units/L (5-40) 03/13/21 20:28 ALT 18 units/L (7-56) 03/13/21 20:28 Alkaline Phosphatase 93 units/L (35-129) 03/13/21 20:28 Troponin T < 0.010 ng/mL (0.00-0.029) 03/13/21 20:28 NT-Pro-B Natriuret Pep 385.3 pg/mL (0-900) 03/13/21 20:33 Total Protein 6.6 g/dL (6.3-8.2) 03/13/21 20:28 Albumin 4.4 g/dL (3.9-5) 03/13/21 20:28 Albumin/Globulin Ratio 2.0 % 03/13/21 20:28 - Imaging and Cardiology Chest x-ray: report reviewed Assessment and Plan VTE prophylaxis?: Mechanical Plan of care discussed with patient/family: Yes - Patient Problems (1) Acute coronary syndrome Status: Acute Plan to address problem: Admit the patient to the medical telemetry. Aspirin 325 mg p.o. daily. Lipitor 40 mg p.o. daily. Nitroglycerin as needed. Serial cardiac enzymes. Echocardiogram. Cardiology consult (2) Hypertensive emergency Status: Acute Plan to address problem: We will put the patient on clonidine patch 0.2 mg TD weekly. Amlodipine 5 mg p.o. daily hydralazine 10 mg IV every 6 hours as needed. We will continue the home medication. (3) CTS (carpal tunnel syndrome) Status: Chronic Plan to address problem: Tylenol 650 p.o. every 6 as needed. Hydralazine 400 mg p.o. every 8 hours. We will monitor the patient closely (4) Osteoarthritis Status: Chronic Plan to address problem: Tylenol 650 p.o. every 6 as needed. Hydralazine 400 mg p.o. every 8 hours. We will monitor the patient closely (5) Sleep apnea Status: Chronic Plan to address problem: Oxygen by nasal cannula 3 L/min. DuoNeb by nebulizer every 4 hours. We will continue the home medication. We will monitor the patient closely (6) DVT prophylaxis Status: Acute Plan to address problem: SCD for DVT prophylaxis because of high blood pressure. Protonix 40 mg p.o. daily for GI prophylaxis. Patient is a full code
[2021-03-13] MEDS ORDERED: ONDANSETRON 4 MG/2 ML INJ IV ONE (21:47)
[2021-03-13 21:56] LABS: Basophils % (Auto) 0.8 % (0.0-1.8); Eosinophils # (Auto) 0.1 K/mm3 (0.0-0.4); Eosinophils % (Auto) 1.8 % (0.0-4.3); Hematocrit 40.8 % (30.3-42.9); Hemoglobin 13.3 gm/dl (10.1-14.3); Lymphocytes # (Auto) 1.5 K/mm3 (1.2-5.4); Lymphocytes % (Auto) 33.5 % (13.4-35.0); Mean Corpuscular HGB Conc 33 % (30-34); Mean Corpuscular Volume 92 fl (79-97); Monocytes # (Auto) 0.4 K/mm3 (0.0-0.8); Monocytes % (Auto) 9.9 % (0.0-7.3); Platelet Count 223 K/mm3 (140-440); Red Blood Count 4.44 M/mm3 (3.65-5.03); Red Cell Distribution Width 15.1 % (13.2-15.2)
[2021-03-13] MEDS ORDERED: traZODone 50 MG TAB PO SCH (22:00)
[2021-03-13 22:09] LABS: Blood Urea Nitrogen 19 mg/dL (7-17); Calcium 9.1 mg/dL (8.4-10.2); Hemolysis Index 69
[2021-03-13 22:12] LABS: BUN/Creatinine Ratio 38
[2021-03-13] MEDS ORDERED: cloNIDine TTS 0.3 MG/24 HR PATCH TD SCH (23:00)
--- NOTE | 2021-03-14 08:46 | Progress Note ---
Assessment and Plan Assessment and plan: (1) Acute coronary syndrome Status: Acute Plan to address problem: Admit the patient to the medical telemetry. Aspirin 325 mg p.o. daily. Lipitor 40 mg p.o. daily. Nitroglycerin as needed. Serial cardiac enzymes. Echocardiogram. Cardiology consult (2) Hypertensive emergency Status: Acute Plan to address problem: We will put the patient on clonidine patch 0.2 mg TD weekly. Amlodipine 5 mg p.o. daily hydralazine 10 mg IV every 6 hours as needed. We will continue the home medication. (3) CTS (carpal tunnel syndrome) Status: Chronic Plan to address problem: Tylenol 650 p.o. every 6 as needed. Hydralazine 400 mg p.o. every 8 hours. We will monitor the patient closely (4) Osteoarthritis Status: Chronic Plan to address problem: Tylenol 650 p.o. every 6 as needed. Hydralazine 400 mg p.o. every 8 hours. We will monitor the patient closely (5) Sleep apnea Status: Chronic Plan to address problem: Oxygen by nasal cannula 3 L/min. DuoNeb by nebulizer every 4 hours. We will continue the home medication. We will monitor the patient closely (6) DVT prophylaxis Status: Acute Plan to address problem: SCD for DVT prophylaxis because of high blood pressure. Protonix 40 mg p.o. daily for GI prophylaxis. Patient is a full code Hospitalist Physical - Constitutional Vitals: Temp Pulse Resp BP Pulse Ox 98.8 F 69 20 160/84 95 03/13/21 20:13 03/14/21 07:45 03/14/21 07:45 03/14/21 07:45 03/14/21 07:45 General appearance: Present: no acute distress, well-nourished HEART Score - HEART Score EKG: Non-specific Age: > 65 Risk factors: 1-2 risk factors Troponin: Troponin T < 0.010 ng/mL (0.00-0.029) 03/14/21 03:44 Troponin: < normal limit - Critical Actions Critical Actions: 4-6 pts:12-16.6% risk of adverse cardiac event. Should be admitted Results - Labs CBC & Chem 7: 03/13/21 21:35 03/13/21 21:35 Labs: Laboratory Last Values WBC 4.5 K/mm3 (4.5-11.0) 03/13/21 21:35 RBC 4.44 M/mm3 (3.65-5.03) 03/13/21 21:35 Hgb 13.3 gm/dl (10.1-14.3) 03/13/21 21:35 Hct 40.8 % (30.3-42.9) 03/13/21 21:35 MCV 92 fl (79-97) 03/13/21 21: MCH 30 pg (28-32) 03/13/21 21:35 MCHC 33 % (30-34) 03/13/21 21:35 RDW 15.1 % (13.2-15.2) 03/13/21 21:35 Plt Count 223 K/mm3 (140-440) 03/13/21 21:35 Lymph % (Auto) 33.5 % (13.4-35.0) 03/13/21 21:35 [place] % (Auto) 9.9 % (0.0-7.3) H 03/13/21 21:35 Eos % (Auto) 1.8 % (0.0-4.3) 03/13/21 21:35 Baso % (Auto) 0.8 % (0.0-1.8) 03/13/21 21:35 Lymph # (Auto) 1.5 K/mm3 (1.2-5.4) 03/13/21 21:35 [place] # (Auto) 0.4 K/mm3 (0.0-0.8) 03/13/21 21:35 Eos # (Auto) 0.1 K/mm3 (0.0-0.4) 03/13/21 21:35 Baso # (Auto) 0.0 K/mm3 (0.0-0.1) 03/13/21 21:35 Seg Neutrophils % 54.0 % (40.0-70.0) 03/13/21 21: Seg Neutrophils # 2.4 K/mm3 (1.8-7.7) 03/13/21 21:35 Sodium 140 mmol/L (137-145) 03/13/21 21:35 Potassium 3.9 mmol/L (3.6-5.0) 03/13/21 21: Chloride 102.6 mmol/L (98-107) 03/13/21 21:35 Carbon Dioxide 26 mmol/L (22-30) 03/13/21 21:35 Anion Gap 15 mmol/L 03/13/21 21:35 BUN 19 mg/dL (7-17) H 03/13/21 21:35 Creatinine 0.5 mg/dL (0.6-1.2) L 03/13/21 21:35 Estimated GFR > 60 ml/min 03/13/21 21:35 BUN/Creatinine Ratio 38 % 03/13/21 21:35 Glucose 126 mg/dL (65-100) H 03/13/21 21:35 Calcium 9.1 mg/dL (8.4-10.2) 03/13/21 21:35 Total Bilirubin 0.30 mg/dL (0.1-1.2) 03/13/21 20:28 AST 19 units/L (5-40) 03/13/21 20:28 ALT 18 units/L (7-56) 03/13/21 20:28 Alkaline Phosphatase 93 units/L (35-129) 03/13/21 20:28 Troponin T < 0.010 ng/mL (0.00-0.029) 03/14/21 03:44 NT-Pro-B Natriuret Pep 385.3 pg/mL (0-900) 03/13/21 20:33 Total Protein 6.6 g/dL (6.3-8.2) 03/13/21 20:28 Albumin 4.4 g/dL (3.9-5) 03/13/21 20:28 Albumin/Globulin Ratio 2.0 % 03/13/21 20:28 Active Medications - Current Medications Current Medications: Generic Name Dose Route Start Last Admin Trade Name Freq PRN Reason Stop Dose Admin Acetaminophen 650 mg 03/13/21 21:26 Acetaminophen 325 Mg Tab PO Q6H PRN Pain, Mild (1-3) Amlodipine Besylate 5 mg 03/14/21 10:00 Amlodipine 5 Mg Tab PO QDAY [facility] Aspirin 325 mg 03/14/21 10:00 Aspirin Ec 325 Mg Tab PO QDAY [facility] Atorvastatin Calcium 40 mg 03/13/21 22:00 03/13/21 23:23 Atorvastatin 40 Mg Tab PO 40 mg QHS BUNNY Administration Clonidine HCl 0.2 mg 03/14/21 10:00 Clonidine Tts 0.2 Mg/24 Hr Patch TD Tu [facility] Docusate Sodium 100 mg 03/13/21 21:30 Docusate Sodium 100 Mg Cap PO BID PRN Constipation Fluoxetine HCl 60 mg 03/14/21 10:00 Fluoxetine 10 Mg Tab PO DAILY [facility] Hydralazine HCl 10 mg 03/13/21 21:29 Hydralazine 20 Mg/1 Ml Inj IV Q6H PRN Blood Pressure Losartan Potassium 50 mg 03/14/21 10:00 Losartan 50 Mg Tab PO QDAY [facility] Morphine Sulfate 2 mg 03/13/21 21:26 Morphine 4 Mg/1 Ml Inj IV Q5MIN PRN Chest Pain unrelieved by NTG Multivitamins 1 each 03/14/21 10:00 Multivitamins ,Therapeutic Tab PO DAILY [facility] Nitroglycerin 0.4 mg 03/13/21 21:26 Nitroglycerin 0.4 Mg Tab Subl SL Q5M PRN Chest Pain Pantoprazole Sodium 40 mg 03/14/21 10:00 Pantoprazole 40 Mg Tab PO QDAY [facility] Propranolol HCl 60 mg 03/14/21 10:00 Propranolol La 60 Mg Cap PO QDAY [facility] Sodium Chloride 10 ml 03/13/21 21:26 Sodium Chloride 0.9% 10 Ml Flush Syringe IV PRN PRN LINE FLUSH Tramadol HCl 50 mg 03/13/21 21:26 Tramadol 50 Mg Tab PO Q6H PRN Pain, Moderate (4-6) Trazodone HCl 25 mg 03/13/21 22:00 03/13/21 23:23 Trazodone 50 Mg Tab PO 25 mg QHS [facility] Administration
[2021-03-14] MEDS ORDERED: MULTIVITAMINS ,THERAPEUTIC TAB PO SCH (10:00)
[2021-03-14] MEDS ORDERED: cloNIDine TTS 0.2 MG/24 HR PATCH TD SCH (10:00)
[2021-03-14] MEDS ORDERED: LOSARTAN 50 MG TAB PO SCH (10:00)
[2021-03-14] MEDS ORDERED: FLUoxetine 10 MG TAB PO SCH (10:00)
[2021-03-14] MEDS ORDERED: MULTIVITAMIN PO SCH (10:00)
[2021-03-14] MEDS ORDERED: amLODIPine 5 MG TAB PO SCH (10:00)
[2021-03-14] MEDS ORDERED: NON-FORMULARY EACH (Losartan [Cozaar] 100 MG Tablet) PO SCH (10:00)
[2021-03-14] MEDS ORDERED: PROPRANOLOL LA 60 MG CAP PO SCH (10:00)
[2021-03-14] MEDS ORDERED: ASPIRIN EC 325 MG TAB PO SCH (10:00)
[2021-03-14] MEDS ORDERED: PANTOPRAZOLE 40 MG TAB PO SCH (10:00)
--- NOTE | 2021-03-14 11:53 | Discharge Summary ---
Providers - Providers Date of Admission: 03/13/21 21:15 Attending physician: GURPREET OSUNA 03/13/21 21:26 Consult to Cardiology [CONS] Routine Consulting Provider: ISABEL KENNEDY Reason For Exam: acs Primary care physician: [employer] Hospitalization Condition: Stable Hospital course: Hypertensive urgency resolved Acute coronary syndrome stable Carpal tunnel syndrome Osteoarthritis Sleep apnea Depression Disposition: 30 STILL A PATIENT Final Discharge Diagnosis (Prints w/discharge instructions): Hypertensive urgency resolved. Acute coronary syndrome stable. Carpal tunnel syndrome. Osteoarthritis. Sleep apnea. Depression Core Measure Documentation - Palliative Care Palliative Care/ Comfort Measures: Not Applicable - Core Measures Any of the following diagnoses?: none Exam - Constitutional Vitals: Temp Pulse Resp BP Pulse Ox 98.8 F 64 20 178/88 96 03/13/21 20:13 03/14/21 11:00 03/14/21 11:00 03/14/21 11:00 03/14/21 11:00 Plan Activity: advance as tolerated, fall precautions Diet: other (Cardiac diet) Additional Instructions: If you have worsening symptoms contact MD or go to the nearest emergency room. Strongly advised to comply with medications diet and follow-up visits. Fall precautions. Follow your primary care physician in 1 week, steam room attendant in 1 to 2 weeks Follow up with: LYDIA ESPARZA MD [Primary Care Provider] - 3-5 Days NICK ARMAS MD [Staff Physician] - 14 Days Prescriptions: amLODIPine 5 mg PO QDAY #30 tablet
--- NOTE | 2021-03-14 13:18 | Consultation ---
History of Present Illness Consult date: 03/14/21 Requesting physician: ELIZABETH NASSAR Consult reason: other (ACS) History of present illness: Patient 76-year-old woman with a past medical history of hypertension, osteoarthritis, sleep apnea, carpal tunnel, and bilateral ankle fractures who presented to the ED with a complaint of high blood pressure and left shoulder pain for 3 to 5 days. Patient reports that over the last several days she noticed her blood pressure has been increasing with no response to her medications. She reports that her blood pressure got to 180/112 and that she decided to come to the hospital. Patient reports that she also had left shoulder pain but that she associates and states it was worse when using her crutches when she walks around. She denies chest pain, palpitation, shortness of breath, nausea, vomiting, or diaphoresis. Of note upon arrival to the ED patient's blood pressure was noted to be 227/120. Patient is previously unknown to our practice. Cardiology is consulted for ACS Past History Past Medical History: arthritis, diabetes, GERD, hypertension Past Surgical History: No surgical history Social history: no significant social history Family history: CAD Medications and Allergies Allergies Allergy/AdvReac Type Severity Reaction Status Date / Time Sulfa (Sulfonamide Allergy Intermediate Rash Verified 03/13/21 20:13 Antibiotics) lisinopril AdvReac Intermediate Rash Verified 03/13/21 20:13 monosodium glutamate AdvReac Vomiting, Verified 03/14/21 10:19 severe migraine, nausea Home Medications Medication Instructions Recorded Confirmed Last Taken Type Docusate Sodium [Colace CAP] 100 mg PO QDAY PRN 11/18/14 03/14/21 03/13/21 History Losartan [Cozaar] 50 mg PO QDAY 11/18/14 03/14/21 03/13/21 08:00 History Propranolol LA [Inderal LA] 60 mg PO QDAY 03/20/19 03/14/21 03/13/21 08:00 History cloNIDine-TTS PATCH [Catapres-Tts 0.3 mg TD QWEEK 03/20/19 03/14/21 03/12/21 History 0.3mg Patch] traZODone [Desyrel] 25 mg PO QHS 03/20/19 03/14/21 03/12/21 21:00 History Acetaminophen [Non-Aspirin Pain 500 mg PO Q6H PRN 03/14/21 03/14/21 Unknown History Relief] Azelastine HCl 1 spr NS QDAY 03/14/21 03/14/21 3 Days Ago History ~03/11/21 FLUoxetine HCL [PROzac] 40 mg PO QDAY 03/14/21 03/14/21 03/13/21 History Ibuprofen [Motrin 800 MG tab] 800 mg PO Q8HR PRN 03/14/21 03/14/21 03/13/21 History Ipratropium 0.06% [Atrovent] 1 spray NS QDAY 03/14/21 03/14/21 3 Days Ago History ~03/11/21 Lutein/Zeaxanthin/Bilberry Ext 1 cap PO QDAY 03/14/21 03/14/21 03/13/21 History [Fiylio-Qqnvbi-Ytdeit 20Mg Sfgl] Prazosin [Minipress] 2 mg PO QHS 03/14/21 03/14/21 03/12/21 History Pumpkin Seed Extract/Soy Germ [Azo 300 mg PO QDAY 03/14/21 03/14/21 03/13/21 History Bladder Control Capsule] amLODIPine 5 mg PO QDAY #30 tablet 03/14/21 Unknown Rx Active Meds: Active Medications Acetaminophen (Acetaminophen 325 Mg Tab) 650 mg PO Q6H PRN PRN Reason: Pain, Mild (1-3) Amlodipine Besylate (Amlodipine 5 Mg Tab) 5 mg PO QDAY [facility] Last Admin: 03/14/21 11:08 Dose: 5 mg Documented by: Aspirin (Aspirin Ec 325 Mg Tab) 325 mg PO QDAY [facility] Last Admin: 03/14/21 11:09 Dose: 325 mg Documented by: Atorvastatin Calcium (Atorvastatin 40 Mg Tab) 40 mg PO QHS [facility] Last Admin: 03/13/21 23:23 Dose: 40 mg Documented by: Clonidine HCl (Clonidine Tts 0.2 Mg/24 Hr Patch) 0.2 mg TD [facility] Last Admin: 03/14/21 11:12 Dose: Not Given Documented by: Docusate Sodium (Docusate Sodium 100 Mg Cap) 100 mg PO BID PRN PRN Reason: Constipation Fluoxetine HCl (Fluoxetine 10 Mg Tab) 60 mg PO DAILY [facility] Last Admin: 03/14/21 11:09 Dose: 60 mg Documented by: Hydralazine HCl (Hydralazine 20 Mg/1 Ml Inj) 10 mg IV Q6H PRN PRN Reason: Blood Pressure Losartan Potassium (Losartan 50 Mg Tab) 50 mg PO QDAY [facility] Last Admin: 03/14/21 11:08 Dose: 50 mg Documented by: Morphine Sulfate (Morphine 4 Mg/1 Ml Inj) 2 mg IV Q5MIN PRN PRN Reason: Chest Pain unrelieved by NTG Multivitamins (Multivitamins ,Therapeutic Tab) 1 each PO DAILY [facility] Last Admin: 03/14/21 11:08 Dose: 1 each Documented by: Nitroglycerin (Nitroglycerin 0.4 Mg Tab Subl) 0.4 mg SL Q5M PRN PRN Reason: Chest Pain Pantoprazole Sodium (Pantoprazole 40 Mg Tab) 40 mg PO QDAY [facility] Last Admin: 03/14/21 11:09 Dose: 40 mg Documented by: Propranolol HCl (Propranolol La 60 Mg Cap) 60 mg PO QDAY [facility] Last Admin: 03/14/21 11:10 Dose: 60 mg Documented by: Sodium Chloride (Sodium Chloride 0.9% 10 Ml Flush Syringe) 10 ml IV PRN PRN PRN Reason: LINE FLUSH Tramadol HCl (Tramadol 50 Mg Tab) 50 mg PO Q6H PRN PRN Reason: Pain, Moderate (4-6) Trazodone HCl (Trazodone 50 Mg Tab) 25 mg PO QHS [facility] Last Admin: 03/13/21 23:23 Dose: 25 mg Documented by: Review of Systems Constitutional: no weight loss, no weight gain, no fever, no chills Ears, nose, mouth and throat: no nasal congestion, no nasal discharge, no sinus pressure Cardiovascular: high blood pressure, no chest pain, no orthopnea, no palpitations, no rapid/irregular heart beat Respiratory: no cough with sputum, no excessive sputum, no hemoptysis, no shortness of breath, no dyspnea on exertion Gastrointestinal: no abdominal pain, no nausea, no vomiting, no diarrhea Musculoskeletal: fractures (bilateral ankle), other (left shoulder pain), no neck stiffness, no neck pain Integumentary: no rash, no pruritis, no redness Neurological: no head injury, no transient paralysis, no paralysis, no weakness Psychiatric: no anxiety, no memory loss Endocrine: no cold intolerance, no heat intolerance Hematologic/Lymphatic: no easy bruising, no easy bleeding Physical Examination Vital Signs Temp Pulse Resp BP Pulse Ox 98.8 F 66 16 227/120 97 03/13/21 20:13 03/13/21 20:13 03/13/21 20:13 03/13/21 20:13 03/13/21 20:13 General appearance: no acute distress HEENT: Positive: PERRL Neck: Positive: trachea midline Cardiac: Positive: Reg Rate and Rhythm Lungs: Positive: Normal Breath Sounds Neuro: Positive: Grossly Intact Abdomen: Positive: Soft Skin: Negative: Rash, Suspicious Lesions, Ulceration Extremities: Present: upper extr. pulses, Other Results 03/13/21 21:35 03/13/21 21:35 Cardiac Enzymes 03/13/21 Range/Units 20:28 AST 19 (5-40) units/L CBC 03/13/21 03/13/21 Range/Units 20:28 21:35 WBC 4.0 L 4.5 (4.5-11.0) K/mm3 RBC 4.43 4.44 (3.65-5.03) M/mm3 Hgb 13.2 13.3 (10.1-14.3) gm/dl Hct 40.6 40.8 (30.3-42.9) % Plt Count 215 223 (140-440) K/mm3 Lymph # (Auto) 1.6 1.5 (1.2-5.4) K/mm3 Frio # (Auto) 0.4 0.4 (0.0-0.8) K/mm3 Eos # (Auto) 0.1 0.1 (0.0-0.4) K/mm3 Baso # (Auto) 0.0 0.0 (0.0-0.1) K/mm3 Comprehensive Metabolic Panel 03/13/21 03/13/21 Range/Units 20:28 21:35 Sodium 141 140 (137-145) mmol/L Potassium 3.7 3.9 (3.6-5.0) mmol/L Chloride 101.9 102.6 (98-107) mmol/L Carbon Dioxide 27 26 (22-30) mmol/L BUN 21 H 19 H (7-17) mg/dL Creatinine 0.6 0.5 L (0.6-1.2) mg/dL Glucose 124 H 126 H (65-100) mg/dL Calcium 9.2 9.1 (8.4-10.2) mg/dL AST 19 (5-40) units/L ALT 18 (7-56) units/L Alkaline Phosphatase 93 (35-129) units/L Total Protein 6.6 (6.3-8.2) g/dL Albumin 4.4 (3.9-5) g/dL EKG interpretations - Telemetry EKG Rhythm: Sinus Rhythm - EKG Sinus rhythms and dysrhythmias: sinus rhythm AV and intraventricular conduction: right bundle branch block Assessment and Plan Patient 76-year-old woman with a past medical history of hypertension, osteoarthritis, sleep apnea, carpal tunnel, and bilateral ankle fractures who presented to the ED with a complaint of high blood pressure and left shoulder pain for 3 to 5 days Atypical chest pain Hypertensive urgency OA DAVID Bilateral ankle fractures Echo 03/13/2021-EF 60 to 65%, mild diastolic dysfunction present impaired relaxation pattern. Mild aortic regurgitation, trace tricuspid regurgitation, trace mitral regurgitation. Right ventricle systolic function is normal. Plan: EKG shows sinus rhythm no acute ischemic changes. Troponins negative x2. AMI ruled out Patient denies chest pain. However she reports shoulder pain that is worsened with palpitation and movement. Likely associated with the use of her crutches Patient's blood pressure is better controlled Continue outpatient BP regiment: Propanolol 60 mg p.o. daily, losartan 100 mg p.o. daily, clonidine 0.3 mg patch once a week. Initiate amlodipine 5 mg p.o. daily Recommend outpatient ischemic eval Cardiac status is stable for discharge Patient has a follow-up appointment with Dr. Sparks, [facility] range management specialist, on 04/14/2021 at 3:15 PM in our [place] location. Phone #[phone] Patient seen in conjunction with Dr. Sparks who agrees with this plan of care - Patient Problems (1) Hypertensive urgency Current Visit: Yes Status: Acute (2) CTS (carpal tunnel syndrome) Current Visit: No Status: Chronic (3) HTN (hypertension) Current Visit: No Status: Chronic (4) Osteoarthritis Current Visit: No Status: Chronic (5) Sleep apnea Current Visit: No Status: Chronic
[2021-03-14 16:30] VITALS: BP 167/86
--- NOTE | 2021-03-15 12:18 | Electrocardiograph Report ---
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
== END 2021-03-14 16:44 | disposition admitted as inpatient to this hospital (09) ==
LOC: ED 20:06 → 4A 21:15 → UNDOADMIN 21:15 → ED 03-14 16:44
DX: I16.1 Hypertensive emergency (principal); I24.9 Acute ischemic heart disease, unspecified; G56.00 Carpal tunnel syndrome, unspecified upper limb; M19.90 Unspecified osteoarthritis, unspecified site
CPT/HCPCS: 36415; 71045; 80048; 80053; 83880; 84484; 85025; 93005; 93306; 96374; 96375; 96376; 99284; J0360; J2405; J3490; 99285; G0378